=== PATIENT | female | born 1975 | race Caucasian/White ===

== ENCOUNTER 2021-11-22 13:52 | Emergency (ER) | payer OTHER ==
[~2021-11-22 13:52] MED LIST: ELIQUIS 5 MG TAB5 MG PO; ENOXAPARIN120 MG/0.8 SC; IBUPROFEN200 MG PO; JANTOVEN3 MG PO; NICOTINE PATCH1 EAC2 TD; NORCO 5-325 TA1 EACH PO; PRILOSEC OTC20 MG PO; TYLENOL 500 MG500 MG PO; ZYRTEC10 MG PO
[2021-11-22] MEDS ORDERED: ELIQUIS 5 MG TAB5 MG GT (18:21)
== END 2021-11-22 18:41 | disposition home or self-care (01) ==
LOC: ER1 13:52
DX: I82.411 Acute embolism and thrombosis of right femoral vein (principal); F17.210 Nicotine dependence, cigarettes, uncomplicated
CPT/HCPCS: 93971; 99283